=== PATIENT | female | born 1995 | race Caucasian/White ===

== ENCOUNTER 2018-01-21 03:13 | Emergency (ER) | payer OTHER ==
[~2018-01-21] VITALS: Ht 172.7 cm; Wt 55.6 kg
[~2018-01-21 03:13] MED LIST: EFFEXOR-XR75 MG PO; GABAPENTIN300 M1 PO
--- NOTE | 2018-01-21 03:17 | ED GI/GU/ABDOMINAL COMPLAINT ---
History of Present Illness General Chief Complaint: Abdominal Pain/Flank Pain Stated Complaint: "KIDNEY STONE" Source: patient Exam Limitations: no limitations Vital Signs & Intake/Output Vital Signs & Intake/Output Vital Signs Date Time Temp Pulse Resp B/P B/P Pulse O2 O2 Flow FiO2 Mean Ox Delivery Rate 01/21 0514 97.8 78 18 121/67 96 Room Air 01/21 0320 97.7 91 18 131/71 100 Room Air Allergies Coded Allergies: No Known Allergies (01/21/18) Reconcile Medications Gabapentin 300 MG TAB 1 TAB PO QHS DEPRESSION (Reported) Ibuprofen 600 MG TABLET 1 TAB PO TID PRN pain with food Ondansetron (Zofran Odt) 4 MG TAB.RAPDIS 1 TAB SL TID PRN nausea Oxycodone HCl/Acetaminophen (Percocet 5-325 MG Tablet) 5 MG-325 MG TABLET 1 TAB PO 4XDP PRN PAIN TEN...[id number] Venlafaxine Hydrochloride (Effexor-XR) 75 MG CER 1 TAB PO DAILY DEPRESSION ( Reported) Triage Nurses Notes Reviewed? yes ? n Is pt currently ? No Onset: Gradual Duration: day(s): Timing: recent history Quality/Severity: cramping, sharpness Location: right flank Radiation: no radiation Activities at Onset: none Modifying Factors: Worsens With: palpation, vomiting. Associated Symptoms: abdominal pain HPI: 22 yo woman h/o kidney stones, presents with right sided flank pain consistent with her prior episodes of kidney stones. She shares that she had a ct scan last year, "had too many to count" kidney stones. "I've had a lot of ct scans and I'm trying to avoid them if I can." She notes mild nausea, one episode of vomiting, and mild mucusy stool. She notes no fever, chills, vaginal symptoms, chest pain. She is otherwise well. Past History Travel History Traveled to [place] past 21 day No Medical History Any Pertinent Medical History? 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 No Review of Systems Review of Systems Constitutional: Reports: no symptoms. EENTM: Reports: no symptoms. Respiratory: Reports: no symptoms. Cardiovascular: Reports: no symptoms. GI: Reports: no symptoms. Genitourinary: Reports: no symptoms. Musculoskeletal: Reports: no symptoms. Skin: Reports: no symptoms. Neurological/Psychological: Reports: no symptoms. Hematologic/Endocrine: Reports: no symptoms. Immunologic/Allergic: Reports: no symptoms. All Other Systems: Reviewed and Negative Physical Exam Physical Exam General Appearance: well developed/nourished, mild distress, moderate distress Head: atraumatic, normal appearance Eyes: Bilateral: normal appearance. Ears, Nose, Throat, Mouth: hearing grossly normal, moist mucous membrane Neck: normal inspection, supple, full range of motion Respiratory: normal breath sounds, no respiratory distress Cardiovascular: regular rate/rhythm Gastrointestinal: normal bowel sounds, soft, non-tender Back: normal inspection Extremities: normal range of motion Neurologic/Psych: no motor/sensory deficits, awake, alert, oriented x 3 Skin: intact, normal color, warm/dry Core Measures ACS in differential dx? No Sepsis Present: No Sepsis Focused Exam Completed? No Progress Differential Diagnosis: kidney stones vs pyelo vs other. Plan of Care: Orders Procedure Date/time Status URINALYSIS 01/21 317 Complete LIPASE 01/21 317 Complete HEPATIC FUNCTION PANEL 01/21 317 Complete HUMAN BETA HCG SCREEN 01/21 317 Complete CBC WITHOUT DIFFERENTIAL 01/21 317 Complete BASIC METABOLIC PANEL 01/21 317 Complete AMYLASE 01/21 317 Complete Laboratory Tests 01/21/18 0442: Urinalysis LIGHT H, Urine Color YEL, Urine Clarity HAZY H, Urine pH 6.0, Ur Specific [place] >= 1.030, Urine Protein 30 H, Urine Ketones NEG, Urine Nitrite NEG, Urine Bilirubin NEG, Urine Urobilinogen 0.2, Ur Leukocyte Esterase NEG, Ur Microscopic SEDIMENT EXAMINED, Urine RBC 10-15 H, Urine WBC 5-10 H, Ur Epithelial Cells MOD H, Urine Crystals RARE [place], Urine Bacteria FEW H, Urine Mucus MOD H, Urine Hemoglobin LARGE H, Urine Glucose NEG 01/21/18 0343: Anion Gap 13, Estimated GFR > 60, BUN/Creatinine Ratio 14.0, Glucose 88, Calcium 10.0, Total Bilirubin 0.4, Direct Bilirubin 0.3, AST 20, ALT 27, Alkaline Phosphatase 86, Total Protein 8.5 H, Albumin 5.0, Amylase 76, Lipase 98, Total Beta HCG NEGATIVE, CBC w Diff NO MAN DIFF REQ, RBC 4.58, MCV 86.3, MCH 28.6, MCHC 33.2, RDW 13.1, MPV 8.4, Gran % 69.0, Lymphocytes % 21.2, Monocytes % 7.9, Eosinophils % 0.7, Basophils % 1.2, Absolute Granulocytes 6.5, Absolute Lymphocytes 2.0, Absolute Monocytes 0.7 H, Absolute Eosinophils 0.1, Absolute Basophils 0.1 Initial ED EKG: none Departure Departure Disposition: HOME OR SELF CARE Condition: Stable Clinical Impression Primary Impression: Kidney stones Referrals: Collins Joiner MD (PCP/Family) Departure Forms: Customer Survey General Discharge Information Prescriptions: Current Visit Scripts Ibuprofen 1 TAB PO TID PRN pain #30 TAB with food Oxycodone HCl/Acetaminophen (Percocet 5-325 MG Tablet) 1 TAB PO 4XDP PRN PAIN #10 TAB TEN...[id number] Ondansetron (Zofran Odt) 1 TAB SL TID PRN nausea #10 TAB Comments 01/21/18, 5:10am... pt feeling better.... labs consistent with kidney stone... due to her clinical response, will defer ct scan... pt counseled to follow up if not better. She is referred to urology.
[2018-01-21 03:54] LABS: ABSOLUTE BASOPHIL COUNT 0.1 /CUMM (0.0-0.2); ABSOLUTE EOSINOPHIL COUNT 0.1 /CUMM (0.0-0.7); ABSOLUTE GRANULOCYTE CT 6.5 /CUMM (1.4-6.5); ABSOLUTE MONOCYTE COUNT 0.7 /CUMM (0.10-0.60); BASOPHIL % 1.2 % (0.0-2.0); EOSINOPHIL % 0.7 % (0-5); HEMATOCRIT 39.5 % (37-47); MEAN CORPUSCULAR HGB 28.6 PG (27.0-31.0); MEAN CORPUSCULAR HGB CONC 33.2 G/DL (33.0-37.0); MEAN CORPUSCULAR VOLUME 86.3 FL (81.0-99.0); MEAN PLATELET VOLUME 8.4 FL (7.4-10.4); PLATELET COUNT 416 /CUMM (130-400); RBC DISTRIBUTION WIDTH 13.1 % (11.5-14.5); RED BLOOD CELL CT 4.58 /CUMM (4.20-5.40); WHITE BLOOD CELL COUNT 9.4 /CUMM (4.8-10.8)
[2018-01-21] MEDS ORDERED: IBUPROFEN600 M1 PO (04:42)
[2018-01-21] MEDS ORDERED: ZOFRAN ODT4 M1 SL (04:42)
[2018-01-21] MEDS ORDERED: PERCOCET 5-3251 EACH PO (04:42)
[2018-01-21 05:14] VITALS: BP 121/67
== END 2018-01-21 05:23 ==
LOC: ERH 03:13
PROVIDERS: Pediatrics
DX: N20.0 Calculus of kidney (principal)
CPT/HCPCS: 81001; 96374; 96375; J1885; J2405